=== PATIENT | female | born 1985 | race Caucasian/White ===

== ENCOUNTER 2016-12-18 06:46 | Day surgery (SDC) | payer BC ==
[2016-12-12 10:34] LABS: BUN (BLOOD UREA NITROGEN) 12 MG/DL (6-23); CALCIUM, SERUM 9.5 MG/DL (8.5-10.4); CHLORIDE, SERUM 107 MMOL/L (96-112); CO2 (CARBON DIOXIDE) 29 MMOL/L (24-34); CREATININE 0.83 MG/DL (0.55-1.02); DIRECT BILIRUBIN 0.1 MG/DL (0.0-0.4); GFR AFRICAN AMERICAN 107 ML/MIN (>=60); GFR NON AFRICAN AMERICAN 93 ML/MIN (>=60); GLUCOSE, SERUM 95 MG/DL (60-99); INDIRECT BILIRUBIN(NOT ORDER) 0.4 MG/DL (0.1-0.9); POTASSIUM, SERUM 4.1 MMOL/L (3.5-5.3); SGOT(AST) 90 U/L (5-40); SGPT(ALT) 160 U/L (5-65); SODIUM, SERUM 143 MMOL/L (135-148); TOTAL BILIRUBIN 0.5 MG/DL (0-1.2); TOTAL PROTEIN 7.5 G/DL (6.0-8.5)
[2016-12-12 10:35] LABS: ALKALINE PHOSPHATASE 113 U/L (45-117)
--- NOTE | ~2016-12-18 | OP ---
Record Of Operation [facility] [address] [place]. [address] NAME: CARSON SANCHEZ : 81 STATUS : [facility]#: [id number] AGE: 31 ADM/REG DATE : 12/18/16 MR#: [id number] REPORT SERV DATE: 12/20/16 DICTATED BY: ELIJAH BRANDON DATE: 12/19/16 REPORT STATUS : Draft TRANSCRIBED BY: PALOMA DATE: 12/19/16 DATE OF PROCEDURE: 12/18/2016 PREOPERATIVE DIAGNOSIS: Symptomatic mammary hypertrophy. POSTOPERATIVE DIAGNOSIS: Symptomatic mammary hypertrophy. PROCEDURE PERFORMED: Bilateral reduction mammoplasty. SURGEON: Elijah Brandon M.D. ANESTHESIA: General. ESTIMATED BLOOD LOSS: 75 mL. DETAILS OF PROCEDURE: After informed consent was obtained, the patient was taken to the operating room, placed in supine position on the OR table. General anesthesia was induced. The patient's breast, chest, and surrounding areas were prepped and draped in usual sterile manner. She had been marked preoperatively. Preop markings were confirmed. The breasts were infiltrated with local anesthetic mix, then starting on the right side, the incisions were scored. The plan was for a Johnston pattern reduction using inferior central pedicle. The patient met [employer] criteria with required tissue removal of excess 400 g. The medial, superior, and lateral excess skin, fatty tissue, and breast tissue were excised sharply with electrocautery. The pedicle was then further debulked and modified for reduction sharply with electrocautery removing a total of 541.2 g. Then the breast mound and pedicle were reshaped and suspended to the chest wall using 2-0 PDS. Hemostasis was then assured. A 15 round William drain was brought out through a separate stab incision sutured to skin with 2-0 silk. Closure was then performed in a layered fashion with deep layer of 3-0 PDS followed by 3-0 and 4-0 Monocryl layered skin closure. Similar procedure performed on the left side removing 535.1 g from the left. Sterile dressings were then applied. She was placed in postoperative garments, taken to PACU in stable condition. CC/PALOMA Elijah Brandon M.D. / [id number] CC: Darian Bailon M.D.
[~2016-12-18 06:46] MED LIST: AMOX250; BALANCED B PO; CRANBERRY300 MG PO; NORCO1 TA2 PO; PHENTERMINE37.5 MG OR; PROBIOTIC; PYR200 PO; SEPTRA DS1 TAB PO; TOPAMAX25 PO; VITE1000 PO
[2016-12-18 07:09] LABS: BASOPHILS 0.3 %; BASOPHILS ABSOLUTE 0.02 10/3/uL (0.0-0.16); EOSINOPHILS 1.2 %; EOSINOPHILS ABSOLUTE 0.09 10/3/uL (0.0-0.53); HEMATOCRIT 40.7 % (36.0-48.0); HEMOGLOBIN 13.5 g/dL (12.0-16.0); IMMATURE GRANULOCYTES 0.1 %; IMMATURE GRANULOCYTES ABSOLUTE 0.01 10/3/uL (0.0-0.11); LYMPHOCYTES 29.3 %; LYMPHOCYTES ABSOLUTE 2.19 10/3/uL (0.67-4.30); MEAN CORPUS HGB CONC 33.2 g/dL (32.0-36.0); MEAN CORPUSCULAR HEMOGLOB 29.2 pg (26.0-34.0); MEAN PLATELET VOLUME 10.1 fL (9.2-13.0); MONOCYTES ABSOLUTE 0.67 10/3/uL (0.21-1.20); NEUTROPHILS 60.1 %; NEUTROPHILS ABSOLUTE 4.49 10/3/uL (2.02-8.40); PLATELET COUNT 250 10/3/uL (150-400); RBC DISTRIBUTION WIDTH 12.5 % (12.0-16.0); RED CELL COUNT 4.62 10/6/uL (4.0-5.6); WHITE BLOOD CELLS 7.5 10/3/uL (4.5-10.5)
[2016-12-18 07:10] LABS: MEAN CORPUSCULAR VOLUME 88.1 fL (80-100)
[2016-12-18 07:11] LABS: MANUAL DIFF NO %
[2016-12-18 07:16] LABS: PARTIAL THROMBO TIME 28.2 SEC (22.5-37.2); PROTIME (NOT ORD) 12.8 SEC (12.0-14.5)
[2016-12-18 07:29] LABS: PFA (COL/EPI) 116 SEC (72-180)
== END 2016-12-18 16:56 | disposition home or self-care (01) ==
LOC: SDC 06:46
PROVIDERS: Plastic Surgery
PROC: 0HBV0ZZ Excision of Bilateral Breast, Open Approach (ICD-10-PCS; principal; 2016-12-18 07:45)
DX: N62 Hypertrophy of breast (principal); G43.909 Migraine, unspecified, not intractable, without status migrainosus; F41.9 Anxiety disorder, unspecified; Z87.442 Personal history of urinary calculi; Z88.8 Allergy status to other drugs, medicaments and biological substances; Z79.899 Other long term (current) drug therapy; Z90.49 Acquired absence of other specified parts of digestive tract; Z98.890 Other specified postprocedural states
CPT/HCPCS: 80048; 80076; 84703; 85025; 85576; 85610; 85730; 88305; A9270-GY; J0690; J1170; J2250; J2270; J2405; J2550; J2710; J3010